=== PATIENT | female | born 1945 | race Caucasian/White ===

== ENCOUNTER 2018-09-11 09:30 | Outpatient (CLI) | payer MEDICARE, OTHER ==
--- NOTE | 2018-09-11 17:55 | ULT ---
LEFT LOWER EXTREMITY VENOUS ULTRASOUND: 09/11/18 Ultrasonography of the left lower extremity was performed. No echogenic clot was seen. All deep veins were freely compressible from groin to ankle. There was normal doppler responses to augmentation man euvers. IMPRESSION: No evidence of DVT. POS: HOME
== END 2018-09-11 09:31 | disposition home or self-care (01) ==
LOC: BURULT 09:30
PROVIDERS: ATTEND Family Medicine
DX: I82.402 Acute embolism and thrombosis of unspecified deep veins of left lower extremity (principal); M79.662 Pain in left lower leg

== ENCOUNTER 2019-01-19 17:10 | Emergency (ER) | payer MEDICARE, OTHER ==
[2019-01-19] MEDS ORDERED: Acetaminophen/Codeine 30-300mg Tablet ONE (17:49)
--- NOTE | 2019-01-19 22:39 | RAD ---
RIGHT LEG TWO VIEWS: Date: 01-19-19 FINDINGS: No fracture or periosteal reaction of concern was seen. The tibia and fibula both appeared intact. No joint effusion was seen at the knee. IMPRESSION: No significant finding. POS: HOME
== END 2019-01-19 17:50 | disposition home or self-care (01) ==
LOC: BURERS 17:10
DX: S76.311A Strain of muscle, fascia and tendon of the posterior muscle group at thigh level, right thigh, initial encounter (principal); S76.111A Strain of right quadriceps muscle, fascia and tendon, initial encounter; W22.8XXA Striking against or struck by other objects, initial encounter

== ENCOUNTER 2019-02-20 15:29 | Outpatient (CLI) | payer MEDICARE, OTHER ==
--- NOTE | 2019-02-20 21:04 | RAD ---
RIGHT HIP TWO VIEWS: 02/20/19 No fracture or dislocation was seen. The acetabulum seems shallower than most, but there is no obviou s subluxation of the femoral head. All adjacent bones appear intact. IMPRESSION: No acute findings. POS: HOME
== END 2019-02-20 15:30 | disposition home or self-care (01) ==
LOC: BURRAD 15:29 → EEVIPCON 15:29 → BURRAD 15:30
PROVIDERS: ATTEND Family Medicine
DX: M25.551 Pain in right hip (principal); M79.604 Pain in right leg